=== PATIENT | female | born 1935 | race Caucasian/White ===

== ENCOUNTER 2017-07-02 14:37 | Inpatient (IN) ==
[2017-07-02] MEDS ORDERED: NON-FORMULARY MEDICATION 1 EACH EACH (Nitroglycerin [Nitrostat] 0.4 MG) SL PRN (18:58)
[2017-07-02] MEDS ORDERED: *HR* Dextrose 50 % in Water (Syg) 50 ML SYRINGE IVP PRN (19:02)
[2017-07-02] MEDS ORDERED: D5% in Water 1,000 ML IVC PRN (19:02)
[2017-07-02] MEDS ORDERED: Dextrose Gel 15 GM PO PRN ×2 (19:02)
[2017-07-02] MEDS ORDERED: Nitroglycerin 0.4 MG TAB.SUBL SL PRN (19:46)
[2017-07-02] MEDS: Apixaban 2.5 MG TABLET PO SCH (22:06)
[2017-07-02] MEDS: Beclomethasone 80mcg MDI IH SCH (22:06)
[2017-07-02] MEDS: *HR* OxyCODONE/APAP 5/325 TABLET PO PRN (22:06)
[2017-07-02] MEDS: Insulin LISPRO 300 UNITS/3 ML VIAL SQ SCH (22:15)
[2017-07-03] MEDS ORDERED: Haloperidol Lactate 5 MG/ML VIAL IM ONE (00:03)
[2017-07-03] MEDS: *HR* OxyCODONE/APAP 5/325 TABLET PO PRN ×2 (00:15→16:50)
[2017-07-03] MEDS: Levalbuterol Neb 1.25 MG/3 ML IH SCH ×2 (06:27→18:25)
[2017-07-03 07:05] LABS: INR 1.4; Prothrombin Time 15.2 Seconds (9.4-12.1)
[2017-07-03 07:08] LABS: Activated Partial Thrombo Time 29.9 Seconds (26.0-36.0)
[2017-07-03 07:12] LABS: Basophils % 0.3 %; Eosinophils # 0.1 K/mcL (0.0-0.6); Hematocrit 33.6 % (35.3-44.9); Immature Granulocytes % 0.4 % (0-4); Lymphocytes # 1.9 K/mcL (0.6-4.6); Lymphocytes % 21.1 %; Mean Corpuscular HGB Conc 32.7 g/dL (31.6-35.5); Mean Corpuscular Hemoglobin 30.7 pg (28.0-33.3); Mean Corpuscular Volume 93.9 fL (83.0-100.0); Mean Platelet Volume 10.2 fL (9.4-12.4); Monocytes % 10.7 %; Platelet Count 251 K/mcL (140-400); Red Blood Count 3.58 M/mcL (3.82-4.97); Segmented Neutrophils % 66.5 %
[2017-07-03 07:28] LABS: Calcium 9.5 mg/dL (8.6-10.3); Potassium 4.2 mEq/L (3.5-5.1)
[2017-07-03] MEDS ORDERED: NON-FORMULARY MEDICATION 1 EACH EACH (Quinapril Hcl [Accupril] 20 MG) PO SCH (09:00)
[2017-07-03] MEDS ORDERED: NON-FORMULARY MEDICATION 1 EACH EACH (Glipizide [Glipizide] 10 MG) PO SCH (09:00)
[2017-07-03] MEDS ORDERED: *HR* LORazepam 1 MG TABLET PO SCH (09:00)
[2017-07-03] MEDS: Aspirin Enteric Coated 81 MG Tablet PO SCH (09:34)
[2017-07-03] MEDS: *HR* GlipiZIDE XL (24 HR) 10 MG TABLET PO SCH (09:35)
[2017-07-03] MEDS: Lisinopril 20 MG TABLET PO SCH (09:35)
[2017-07-03] MEDS: Apixaban 2.5 MG TABLET PO SCH ×2 (09:35→22:36)
[2017-07-03] MEDS: Budesonide/Formoterol 160/4.5 MDI IH SCH (09:40)
--- NOTE | 2017-07-03 12:02 | Internal Med History&Physical ---
Date of Encounter: 07/03/17 Time of Encounter: 12:00 Assessment and Plan (1) Fall Current visit: No Status: Acute No acute issues. Patient continues to have unsteady gait and requires assist device of wheeled walker during ambulation. Patient to continue with physical therapy Qualifiers: Encounter type: subsequent encounter Qualified Code(s): W19.XXXD - Unspecified fall, subsequent encounter (2) Nocturnal confusion Current visit: Yes Status: Acute Patient with episode of nocturnal confusion last night, during which she became very agitated and attempted to leave the facility during late night. Patient required medication with Haldol, which showed be very effective. Patient with long history of chronic pain issues and has been taking Percocet at home. Patient was given an extra dose Percocet last evening prior to her confusion at night. We will evaluate patient's current medications. Patient currently shows no confusion or focal neurological deficits. Morning labs were reviewed which shows no acute issues. We will obtain a urinalysis for evaluation. We will continue was patient's current medications (3) Hypertension Current visit: No Status: Chronic Vital signs stable. We will continue with current medications. Qualifiers: Hypertension type: essential hypertension Qualified Code(s): I10 - Essential (primary) hypertension (4) Diabetes 1.5, managed as type 2 Current visit: No Status: Chronic Patients glucose has been slightly elevated between 150-200. Will evaluate patient's current medication regimen. Internal Medicine - H&P: HPI Admitted From: Home Plans for Post Hospital Care: Home History of present illness: Ms. Bryant is a 81 year old female with history of arthritis, asthma, atrial fibrillation, diabetes, high cholesterol, hypertension, rhinitis syncope and TIA. Patient apparently fell at home and sustained low back pain patient came into the emergency room at an [facility] due to persistent low back pain for about 2 days also some unsteady gait on ambulation. Per medical records, she experienced no chest pain no shortness of breath and emergency room images showed no fracture. She did have an evaluation troponin was 0.04 patient would then admitted. Pt was ruled out for a cardiac event and was determined to be deconditioned and would benefit from Physical therapy. Patient currently appears relaxed as appropriate with conversation. Patient did have nocturnal confusion last evening, during which time she became agitated and attempted to leave the facility during the late night. Patient time was reported as somewhat confused with complex decision-making, but appeared appropriate with orientation. Nurse reports no focal neurological deficits that time. Patient was medicated at that time with Haldol and responded well. This morning she states she remembers having issues last night and relates her confusion to pain medication. Patient does have a history of chronic pain disease and does take pain medication at home. Patient currently denies any discomforts or shortness. Patient was pleasant this morning and was able to follow directions and answer complex questions. Past Med Surg Social Fam HX - Past Medical History Medical history: arthritis, asthma, atrial fibrillation, diabetes, hyperlipidemia, hypertension, syncope, TIA Psychiatric history: anxiety - Social History Smoking Status: Never smoker Smokeless Tobacco Status: No Alcohol use: none Drug use: none Internal Medicine - H&P: Meds Albuterol Sulfate [Ventolin Hfa] 18 gm IH BID 05/26/15 [History] Apixaban [Eliquis] 2.5 mg PO BID 05/26/15 [History] Aspirin [Adult Low Dose Aspirin EC] 81 mg PO DAILY 05/26/15 [History] Atorvastatin [Lipitor] 40 mg PO HS 05/26/15 [History] Beclomethasone Diprop 80mcg [QVAR 80 mcg] 1 puff BID 05/26/15 [History] Fluticasone/Salmeterol [Advair 500-50 Diskus] 1 each IH DAILY 05/26/15 [History] Levalbuterol Neb [Xopenex Neb] 1.25 mg IH PRN PRN 05/26/15 [History] Metoprolol [Lopressor] 50 mg PO BID 05/26/15 [History] Nitroglycerin [Nitrostat] 0.4 mg SL PRN PRN 05/26/15 [History] Quinapril HCl [Accupril] 20 mg PO DAILY 05/26/15 [History] glipiZIDE [Glipizide] 10 mg PO DAILY 05/26/15 [History] LORazepam [Ativan] 1 mg PO DAILY 5 Days #5 tablet 07/02/17 [Rx] OxyCODONE/APAP 5/325 [Percocet 5/325 MG] 1 each PO Q8HR PRN 5 Days #10 tablet [Rx] 3 Allergy/AdvReac Type Severity Reaction Status Date / Time codeine AdvReac Hallucinati Verified 05/26/15 15:48 ng morphine AdvReac Hallucinati Verified 05/26/15 15:48 ng All Systems PM: A 10-system review of systems was performed and is negative for pertinent findings except as documented above in the HPI. - Constitutional Constitutional: as per HPI, no chills, no fever(s), no night sweats - EENT Eyes: no change in vision, no discharge, no pain, no photophobia Ears: no ear discharge, no ear pain, no tinnitus Nose, mouth and throat: no dysphagia, no nasal discharge, no neck pain, no sore throat - Cardiovascular Cardiovascular ROS IM: no chest pain, no diaphoresis, no dyspnea, no lightheadedness, no palpitations, no syncope - Respiratory Respiratory: no cough, no dyspnea, no wheezing, no excessive phlegm production - Gastrointestinal Gastrointestinal: no abdominal pain, no diarrhea, no hematemesis, no hematochezia, no melena, no nausea, no vomiting - Genitourinary Genitourinary: no change in urinary stream, no dysuria, no flank pain, no hematuria - Musculoskeletal Musculoskeletal ROS IM: no numbness, no tingling - Integumentary Integumentary IM: no rash, no unusual bruising - Neurological Neurological ROS: no confusion, no convulsions, no focal weakness, no numbness, no tingling, no tremor(s) - Hematologic/Lymphatic Hematologic/Lymphatic: no easy bruising - Constitutional Vitals: Temp Pulse Resp BP Pulse Ox 97.7 F 62 16 169/72 95 07/03/17 07:50 07/03/17 07:50 07/03/17 07:50 07/03/17 07:50 07/03/17 07:50 General appearance: Present: A&O X 3, pleasant - Head Head exam: Present: atraumatic, normocephalic - Eye Eye exam: Present: PERRL, conjuntiva pink, sclera anicteric Pupils: Present: PERRL - Neck Neck exam general surgery: Present: supple, trachea midline. Absent: lymphadenopathy - Respiratory Respiratory exam: Present: CTAB. Absent: accessory muscle use, rales, rhonchi, wheezes Additional comments: Lungs clear throughout upper reveals diminished to bases. Respiratory effort appears relaxed - Cardiovascular Cardiovascular exam: Present: RRR, +S1, +S2. Absent: diastolic murmur, gallop, rubs, systolic murmur - GI/Abdominal GI/Abdominal exam: Present: normal bowel sounds, soft, no peritoneal signs. Absent: distended, tenderness - Extremities Exam Extremities exam: Present: warm, radial pulses palpable and symmetrical. Absent : calf tenderness, cyanotic, pedal edema - Neurological Exam Neurological exam: Present: CN II-XII intact, oriented X3, no focal deficits. Absent: pronater drift, facial droop, speech deficit Additional comments: Patient currently is oriented x3 and appropriate with conversation. No focal neurological deficits noted on exam. Noted slight tremor of hands, which patient states is chronic - Skin Skin exam: Present: dry, intact Internal Med - H&P Results - Labs CBC & Chem 7: 07/03/17 06:52 07/03/17 06:52 Labs: Short CBC 07/03/17 Range/Units 06:52 WBC 9.0 (4.3-11.1) K/mcL Hgb 11.0 L (11.5-15.4) g/dL Hct 33.6 L (35.3-44.9) % Plt Count 251 D (140-400) K/mcL Neutrophils # 6.0 (1.6-8.9) K/mcL BMP 07/03/17 06:52 Sodium 132 L Potassium 4.2 Chloride 99 Carbon Dioxide 25 BUN 29 H Creatinine 1.16 Glucose 193 H Calcium 9.5
[2017-07-03] MEDS: Insulin LISPRO 300 UNITS/3 ML VIAL SQ SCH ×4 (13:22→22:33)
[2017-07-03] MEDS: Nystatin POWDER 30 GM BOTTLE TP SCH ×2 (13:24→22:40)
[2017-07-03] MEDS: Beclomethasone 80mcg MDI IH SCH ×2 (13:24→22:38)
[2017-07-03] MEDS: *HR* LORazepam 1 MG TABLET PO SCH (22:37)
[2017-07-04] MEDS: *HR* OxyCODONE/APAP 5/325 TABLET PO PRN ×2 (01:53→18:28)
[2017-07-04 02:05] LABS: Bilirubin,Urine Negative (Negative); Blood,Urine Negative (Negative); Clarity,Urine Clear (Clear); Color,Urine Yellow (Yellow); Glucose,Urine (UA) Normal (Normal); Ketones,Urine Negative (Negative); Leukocyte Esterase,Urine Negative (Negative); Nitrite,Urine Negative (Negative); Protein,Urine Negative (Neg-Trace); Urobilinogen,Urine Normal (Normal)
[2017-07-04] MEDS: Levalbuterol Neb 1.25 MG/3 ML IH SCH ×2 (06:22→19:38)
[2017-07-04] MEDS: Lisinopril 20 MG TABLET PO SCH (08:26)
[2017-07-04] MEDS: Aspirin Enteric Coated 81 MG Tablet PO SCH (08:26)
[2017-07-04] MEDS: Apixaban 2.5 MG TABLET PO SCH ×2 (08:27→22:27)
[2017-07-04] MEDS: *HR* GlipiZIDE XL (24 HR) 10 MG TABLET PO SCH (08:27)
[2017-07-04] MEDS: Nystatin POWDER 30 GM BOTTLE TP SCH ×2 (08:28→22:29)
[2017-07-04] MEDS: Insulin LISPRO 300 UNITS/3 ML VIAL SQ SCH ×4 (08:28→20:50)
[2017-07-04] MEDS: Budesonide/Formoterol 160/4.5 MDI IH SCH (08:28)
[2017-07-04] MEDS: Beclomethasone 80mcg MDI IH SCH ×2 (08:29→22:26)
--- NOTE | 2017-07-04 12:57 | Internal Med Progress Note ---
Date of Encounter: 07/04/17 Time of Encounter: 12:55 - Assessment and plan (1) Fall Current Visit: No Status: Acute Qualifiers: Encounter type: subsequent encounter Qualified Code(s): W19.XXXD - Unspecified fall, subsequent encounter (2) Nocturnal confusion Current Visit: Yes Status: Acute (3) Hypertension Current Visit: No Status: Chronic Qualifiers: Hypertension type: essential hypertension Qualified Code(s): I10 - Essential (primary) hypertension (4) Diabetes 1.5, managed as type 2 Current Visit: No Status: Chronic - Subjective Interval history: Pt appears relaxed and denies any current issues or discomforts. Patient states that her pain has currently been controlled with current medications and denies any adverse reactions. Patient is appropriate with conversation and oriented. - Constitutional Vitals: Temp Pulse Resp BP Pulse Ox 97.6 F 61 16 109/53 99 07/04/17 07:31 07/04/17 07:31 07/04/17 07:31 07/04/17 07:31 07/04/17 07:31 General appearance: Present: A&O X 3, pleasant - Head Head exam: Present: atraumatic, normocephalic - Eye Eye exam: Present: PERRL, conjuntiva pink, sclera anicteric Pupils: Present: PERRL - Neck Neck exam general surgery: Present: supple, trachea midline. Absent: lymphadenopathy - Respiratory Respiratory exam: Present: CTAB. Absent: accessory muscle use, rales, rhonchi, wheezes Additional comments: Diminished breath sounds to basilar adrian. Respiratory effort appears relaxed - Cardiovascular Cardiovascular exam: Present: RRR, +S1, +S2. Absent: diastolic murmur, gallop, rubs, systolic murmur - GI/Abdominal GI/Abdominal exam: Present: normal bowel sounds, soft, no peritoneal signs. Absent: distended, tenderness - Extremities Exam Extremities exam: Present: warm, radial pulses palpable and symmetrical. Absent : calf tenderness, cyanotic, pedal edema - Neurological Exam Neurological exam: Present: CN II-XII intact, oriented X3, reflexes normal, no focal deficits, strengths equal and symetr throughout. Absent: pronater drift, facial droop, speech deficit - Skin Skin exam: Present: dry, intact Internal Medicine: Result - Labs CBC & Chem 7: 07/03/17 06:52 07/03/17 06:52 Labs: Urine 07/04/17 Range/Units 01:55 Urine Color Yellow (Yellow) Urine Clarity Clear (Clear) Urine pH 7.0 (5.0-8.0) pH Units Ur Specific [place] 1.010 (1.010-1.025) Urine Protein Negative (Neg-Trace) mg/dL Urine Glucose (UA) Normal (Normal) mg/dL - ABG Interpretation ABG results: PT/INR, D-dimer PT 15.2 Seconds (9.4-12.1) H 07/03/17 06:52 Consult Discharge Plan - Plan Referrals: Danette Verde MD [Primary Care Provider] -
[2017-07-04] MEDS: *HR* LORazepam 1 MG TABLET PO SCH (22:27)
[2017-07-05] MEDS: Levalbuterol Neb 1.25 MG/3 ML IH SCH (05:08)
--- NOTE | 2017-07-05 08:04 | Internal Med Progress Note ---
Date of Encounter: 07/05/17 Time of Encounter: 08:04 - Assessment and plan (1) Status post hip hemiarthroplasty Current Visit: Yes Status: Acute Assessment and plan: Stable, postoperatively, participating in therapies as planned. (2) DM type 2 (diabetes mellitus, type 2) Current Visit: No Status: Chronic Assessment and plan: Clinically stable and will continue current medications and sliding scale. Qualifiers: Diabetes mellitus inter[employer] customer [employer] insulin use: without care home use Diabetes mellitus complication status: with neurologic complications Diabetes mellitus complication detail: with polyneuropathy Qualified Code(s): E11.42 - Type 2 diabetes mellitus with diabetic polyneuropathy (3) CKD (chronic kidney disease) Current Visit: No Status: Chronic Assessment and plan: Stable, will continue to monitor. Qualifiers: Chronic kidney disease stage: stage 3 (moderate) Qualified Code(s): N18.3 - Chronic kidney disease, stage 3 (moderate) (4) Constipation Current Visit: Yes Status: Acute Assessment and plan: We will begin MiraLAX and follow. Qualifiers: Constipation type: slow transit constipation Qualified Code(s): K59.01 - Slow transit constipation - Time Spent With Patient 25 - 35 minutes - Subjective Interval history: Patient is tired out after therapy. Otherwise, has been feeling better and continues to progress with therapy, generally. She notes extensive bruising at her right hip. I discussed this and its natural progression, with her. She has not had a bowel movement and feels no need. Denies abdominal discomfort , etc. Patient has no complaint of chest discomfort, dyspnea, orthopnea, palpitations, nausea or vomiting, constipation or diarrhea, other changes in bowel habits, difficulty with urination, rash or itching, or other new complaints. Review of systems is otherwise unremarkable. - Constitutional Vitals: Temp Pulse Resp BP Pulse Ox 97.7 F 61 17 129/62 95 07/04/17 19:00 07/04/17 19:00 07/04/17 19:00 07/04/17 19:00 07/04/17 19:00 General appearance: Present: A&O X 3, pleasant Exam: Examinatioin: (Except as mentioned above): General: In no apparent distress. Alert and oriented 3. Nondiaphoretic. Head: Atraumatic and normocephalic. Respiratory: No use of accessory muscles. Lungs are clear throughout. Normal airflow. Cardiovascular: Regular rate and rhythm without murmur appreciated. Abdomen: Bowel sounds are normal. No hepatosplenomegaly mass or tenderness appreciated. Obese and therefore difficult to palpate deeply. Extremities: No cyanosis clubbing or edema. Skin: Warm and non-diaphoretic with no new lesions noted. Multiple ecchymoses at low sacral region on the right as well as right hip. Internal Medicine: Result - Labs CBC & Chem 7: 07/03/17 06:52 07/03/17 06:52 - ABG Interpretation ABG results: PT/INR, D-dimer PT 15.2 Seconds (9.4-12.1) H 07/03/17 06:52 Consult Discharge Plan - Plan Referrals: Danette Verde MD [Primary Care Provider] -
[2017-07-05] MEDS: Insulin LISPRO 300 UNITS/3 ML VIAL SQ SCH ×4 (08:10→21:28)
[2017-07-05] MEDS: *HR* OxyCODONE/APAP 5/325 TABLET PO PRN ×2 (08:15→21:26)
[2017-07-05] MEDS: Aspirin Enteric Coated 81 MG Tablet PO SCH (08:15)
[2017-07-05] MEDS: Lisinopril 20 MG TABLET PO SCH (08:15)
[2017-07-05] MEDS: *HR* GlipiZIDE XL (24 HR) 10 MG TABLET PO SCH (08:16)
[2017-07-05] MEDS: Apixaban 2.5 MG TABLET PO SCH ×2 (08:16→21:25)
[2017-07-05] MEDS: Budesonide/Formoterol 160/4.5 MDI IH SCH (08:17)
[2017-07-05] MEDS: Nystatin POWDER 30 GM BOTTLE TP SCH ×2 (08:17→21:29)
[2017-07-05] MEDS: Beclomethasone 80mcg MDI IH SCH (08:18)
[2017-07-05] MEDS ORDERED: Beclomethasone 80mcg MDI IH PRN (08:25)
[2017-07-05] MEDS ORDERED: Budesonide/Formoterol 160/4.5 MDI IH PRN (08:26)
[2017-07-05] MEDS ORDERED: Levalbuterol Neb 1.25 MG/3 ML IH PRN (15:57)
[2017-07-05] MEDS: *HR* LORazepam 1 MG TABLET PO SCH (21:25)
[2017-07-06] MEDS: Insulin LISPRO 300 UNITS/3 ML VIAL SQ SCH ×3 (07:35→16:09)
[2017-07-06] MEDS: Aspirin Enteric Coated 81 MG Tablet PO SCH (08:18)
[2017-07-06] MEDS: Apixaban 2.5 MG TABLET PO SCH ×2 (08:18→22:50)
[2017-07-06] MEDS: *HR* GlipiZIDE XL (24 HR) 10 MG TABLET PO SCH (08:18)
[2017-07-06] MEDS: Lisinopril 20 MG TABLET PO SCH (08:18)
[2017-07-06] MEDS: Nystatin POWDER 30 GM BOTTLE TP SCH ×2 (08:22→22:47)
[2017-07-06] MEDS: *HR* OxyCODONE/APAP 5/325 TABLET PO PRN ×2 (09:40→22:04)
--- NOTE | 2017-07-06 17:51 | Internal Med Progress Note ---
Date of Encounter: 07/06/17 Time of Encounter: 17:50 - Assessment and plan (1) Status post hip hemiarthroplasty Current Visit: Yes Status: Acute Assessment and plan: Stable, postoperatively, participating in therapies as planned. See notes about her questions about discharge planning, in history of present illness. (2) DM type 2 (diabetes mellitus, type 2) Current Visit: No Status: Chronic Assessment and plan: Clinically stable and will continue current medications and sliding scale. Qualifiers: Diabetes mellitus alf insulin use: without termite helper use Diabetes mellitus complication status: with neurologic complications Diabetes mellitus complication detail: with polyneuropathy Qualified Code(s): E11.42 - Type 2 diabetes mellitus with diabetic polyneuropathy (3) CKD (chronic kidney disease) Current Visit: No Status: Chronic Assessment and plan: Stable, will continue to monitor. Qualifiers: Chronic kidney disease stage: stage 3 (moderate) Qualified Code(s): N18.3 - Chronic kidney disease, stage 3 (moderate) (4) Constipation Current Visit: Yes Status: Acute Assessment and plan: Clinically stable with no signs of constipation, currently. Qualifiers: Constipation type: slow transit constipation Qualified Code(s): K59.01 - Slow transit constipation - Time Spent With Patient 25 - 35 minutes - Subjective Interval history: Patient is feeling fatigued but is moving around better. She has had a bowel movement daily. She has no acute complaints. She questions discharge planning. I informed her that we would talk about her team meeting tomorrow and she is interested in the results and whether she should consider going home or to an extended care facility. Patient has no complaint of chest discomfort, dyspnea, orthopnea, palpitations, nausea or vomiting, constipation or diarrhea, other changes in bowel habits, difficulty with urination, rash or itching, or other new complaints. Review of systems is otherwise unremarkable. - Constitutional Vitals: Temp Pulse Resp BP Pulse Ox 97.7 F 60 16 124/60 100 07/06/17 08:00 07/06/17 08:00 07/06/17 08:00 07/06/17 08:00 07/06/17 08:00 General appearance: Present: A&O X 3, pleasant Exam: Examinatioin: (Except as mentioned above): General: In no apparent distress. Alert and oriented 3. Nondiaphoretic. Head : Atraumatic and normocephalic. Respiratory: No use of accessory muscles. Lungs are clear throughout. Normal airflow. Cardiovascular: Regular rate and rhythm with a grade 2/6 systolic murmur heard at the left base and minimally at the left ventricular outflow tract. Abdomen: Bowel sounds are normal. No hepatosplenomegaly mass or tenderness appreciated. Obese and therefore difficult to palpate deeply. Examined upright in chair. Extremities: No cyanosis clubbing but has about 1+ ankle edema, bilaterally, as before without erythema or signs of infection. Skin: Warm and non-diaphoretic with no new lesions noted. Internal Medicine: Result - Labs CBC & Chem 7: 07/03/17 06:52 07/03/17 06:52 - ABG Interpretation ABG results: PT/INR, D-dimer PT 15.2 Seconds (9.4-12.1) H 07/03/17 06:52 Consult Discharge Plan - Plan Referrals: Danette Verde MD [Primary Care Provider] -
[2017-07-06] MEDS: *HR* LORazepam 1 MG TABLET PO SCH (21:59)
[2017-07-06] MEDS: Apixaban 5 MG TABLET PO SCH ×2 (23:34→23:36)
[2017-07-07 07:18] LABS: Basophils % 0.3 %; Eosinophils # 0.2 K/mcL (0.0-0.6); Eosinophils % 2.6 %; Hematocrit 34.1 % (35.3-44.9); Hemoglobin 10.8 g/dL (11.5-15.4); Immature Granulocytes % 0.4 % (0-4); Lymphocytes # 1.6 K/mcL (0.6-4.6); Lymphocytes % 22.5 %; Mean Corpuscular HGB Conc 31.7 g/dL (31.6-35.5); Mean Corpuscular Hemoglobin 30.8 pg (28.0-33.3); Mean Corpuscular Volume 97.2 fL (83.0-100.0); Mean Platelet Volume 10.1 fL (9.4-12.4); Monocytes # 0.7 K/mcL (0.0-1.3); Monocytes % 9.7 %; Neutrophils # 4.5 K/mcL (1.6-8.9); Platelet Count 256 K/mcL (140-400); Red Blood Count 3.51 M/mcL (3.82-4.97); Red Cell Distribution Width 14.7 % (11.5-14.5); Segmented Neutrophils % 64.5 %
[2017-07-07 07:33] LABS: Albumin 3.6 g/dL (3.5-5.7); Albumin/Globulin Ratio 1.3 (1.1-2.2); Calcium 9.4 mg/dL (8.6-10.3); Globulin 2.8 g/dL (2.4-3.5); Potassium 4.4 mEq/L (3.5-5.1); Total Protein 6.4 g/dL (6.4-8.9)
[2017-07-07 08:05] LABS: Bilirubin,Direct 0.5 mg/dL (0.0-0.2)
[2017-07-07] MEDS: Aspirin Enteric Coated 81 MG Tablet PO SCH (08:20)
[2017-07-07] MEDS: Lisinopril 20 MG TABLET PO SCH (08:20)
[2017-07-07] MEDS: Apixaban 5 MG TABLET PO SCH ×2 (08:20→22:10)
[2017-07-07] MEDS: *HR* OxyCODONE/APAP 5/325 TABLET PO PRN ×2 (08:20→22:11)
[2017-07-07] MEDS: Nystatin POWDER 30 GM BOTTLE TP SCH ×2 (08:21→22:10)
[2017-07-07] MEDS: *HR* GlipiZIDE XL (24 HR) 10 MG TABLET PO SCH (08:21)
[2017-07-07] MEDS ORDERED: Apixaban 5 MG TABLET PO SCH (09:00)
--- NOTE | 2017-07-07 11:35 | Internal Med Progress Note ---
Date of Encounter: 07/07/17 Time of Encounter: 11:32 - Assessment and plan (1) Fall Current Visit: No Status: Acute Assessment and plan: No acute issues. Patient is with unsteady gait requiring assistance device. Patient continues to progress well with physical therapy. Qualifiers: Encounter type: subsequent encounter Qualified Code(s): W19.XXXD - Unspecified fall, subsequent encounter (2) Nocturnal confusion Current Visit: Yes Status: Acute Assessment and plan: No further reports nocturnal confusion received from nursing. Problem currently appears to be resolved. (3) Hypertension Current Visit: No Status: Chronic Assessment and plan: Vital signs are stable. We will continue with current medications. Qualifiers: Hypertension type: essential hypertension Qualified Code(s): I10 - Essential (primary) hypertension (4) Diabetes 1.5, managed as type 2 Current Visit: No Status: Chronic Assessment and plan: No acute issues. Glucose has been controlled with current regimen. Will continue to monitor per FS - Subjective Interval history: Pt appears relaxed and denies any current issues or discomforts. Patient states that her pain has currently been controlled with current medications and denies any adverse reactions. Patient is appropriate with conversation and oriented. No reported behavior issues from Nursing reported. - Constitutional Vitals: Temp Pulse Resp BP Pulse Ox 97.9 F 62 19 155/64 97 07/07/17 05:55 07/07/17 05:55 07/07/17 05:55 07/07/17 05:55 07/07/17 05:55 General appearance: Present: A&O X 3, pleasant - Head Head exam: Present: atraumatic, normocephalic - Eye Eye exam: Present: PERRL, conjuntiva pink, sclera anicteric Pupils: Present: PERRL - Neck Neck exam general surgery: Present: supple, trachea midline. Absent: lymphadenopathy - Respiratory Respiratory exam: Present: CTAB. Absent: accessory muscle use, rales, rhonchi, wheezes - Cardiovascular Cardiovascular exam: Present: RRR, +S1, +S2. Absent: diastolic murmur, gallop, rubs, systolic murmur - GI/Abdominal GI/Abdominal exam: Present: normal bowel sounds, soft, no peritoneal signs. Absent: distended, tenderness - Extremities Exam Extremities exam: Present: warm, radial pulses palpable and symmetrical. Absent : calf tenderness, cyanotic, pedal edema - Neurological Exam Neurological exam: Present: CN II-XII intact, oriented X3, no focal deficits. Absent: pronater drift, facial droop, speech deficit - Skin Skin exam: Present: dry, intact Internal Medicine: Result - Labs CBC & Chem 7: 07/07/17 06:51 07/07/17 06:51 Labs: Short CBC 07/07/17 Range/Units 06:51 WBC 6.9 (4.3-11.1) K/mcL Hgb 10.8 L (11.5-15.4) g/dL Hct 34.1 L (35.3-44.9) % Plt Count 256 (140-400) K/mcL Neutrophils # 4.5 (1.6-8.9) K/mcL BMP 07/07/17 06:51 Sodium 137 Potassium 4.4 Chloride 103 Carbon Dioxide 28 BUN 33 H Creatinine 1.26 H Glucose 100 Calcium 9.4 Liver Function 07/07/17 Range/Units 06:51 Total Bilirubin 3.0 H (0.3-1.0) mg/dL Direct Bilirubin 0.5 H (0.0-0.2) mg/dL AST 15 (13-39) Units/L ALT 10 (7-52) Units/L Alkaline Phosphatase 70 (34-104) Units/L Albumin 3.6 (3.5-5.7) g/dL - ABG Interpretation ABG results: PT/INR, D-dimer PT 15.2 Seconds (9.4-12.1) H 07/03/17 06:52 Consult Discharge Plan - Plan Referrals: Danette Verde MD [Primary Care Provider] -
[2017-07-07] MEDS: *HR* LORazepam 1 MG TABLET PO SCH (22:10)
[2017-07-08] MEDS: *HR* GlipiZIDE XL (24 HR) 10 MG TABLET PO SCH (07:37)
[2017-07-08] MEDS: Apixaban 5 MG TABLET PO SCH ×2 (07:37→22:16)
[2017-07-08] MEDS: Lisinopril 20 MG TABLET PO SCH (07:38)
[2017-07-08] MEDS: *HR* OxyCODONE/APAP 5/325 TABLET PO PRN ×2 (07:39→18:21)
[2017-07-08] MEDS: Aspirin Enteric Coated 81 MG Tablet PO SCH (07:39)
[2017-07-08] MEDS: Nystatin POWDER 30 GM BOTTLE TP SCH ×2 (09:34→22:18)
--- NOTE | 2017-07-08 11:03 | Internal Med Progress Note ---
Date of Encounter: 07/08/17 Time of Encounter: 11:00 - Assessment and plan (1) Hypertension Current Visit: Yes Status: Chronic Assessment and plan: Controlled with current medications. Continue to monitor blood pressure Qualifiers: Hypertension type: essential hypertension Qualified Code(s): I10 - Essential (primary) hypertension (2) Diabetes 1.5, managed as type 2 Current Visit: Yes Status: Chronic Assessment and plan: Controlled with current medication. Monitor fingerstick blood sugar will adjust medicines as necessary. (3) Unsteady gait Current Visit: Yes Status: Acute Assessment and plan: Ambulated hallway with Walker with therapy. Progressing well with therapy. Will continue to follow - Time Spent With Patient less than 15 minutes - Subjective Interval history: Patient participating well with therapy. States feeling fatigued today. Not sleeping well at night. States worried about going home, ensure if she will have help. Denies any complaints or pain at this time. - Constitutional Vitals: Temp Pulse Resp BP Pulse Ox 97.6 F 70 16 125/64 98 07/08/17 09:10 07/08/17 09:10 07/08/17 09:10 07/08/17 09:10 07/08/17 09:10 General appearance: Present: A&O X 3, pleasant, obese, answers questions appropriately - Head Head exam: Present: atraumatic, normocephalic - Eye Eye exam: Present: PERRL, conjuntiva pink, sclera anicteric Pupils: Present: PERRL - Neck Neck exam general surgery: Present: supple, trachea midline. Absent: lymphadenopathy - Respiratory Respiratory exam: Present: CTAB. Absent: accessory muscle use, rales, rhonchi, wheezes - Cardiovascular Cardiovascular exam: Present: RRR, +S1, +S2. Absent: diastolic murmur, gallop, rubs, systolic murmur - GI/Abdominal GI/Abdominal exam: Present: normal bowel sounds, soft, no peritoneal signs. Absent: distended, tenderness - Extremities Exam Extremities exam: Present: warm, radial pulses palpable and symmetrical. Absent : calf tenderness, cyanotic, pedal edema - Neurological Exam Neurological exam: Present: CN II-XII intact, oriented X3, no focal deficits. Absent: pronater drift, facial droop, speech deficit - Skin Skin exam: Present: dry, intact Internal Medicine: Result - Labs CBC & Chem 7: 03/12/18 06:51 07/07/17 06:51 - ABG Interpretation ABG results: PT/INR, D-dimer PT 15.2 Seconds (9.4-12.1) H 07/03/17 06:52 Consult Discharge Plan - Plan Referrals: Danette Verde MD [Primary Care Provider] -
[2017-07-08] MEDS: *HR* LORazepam 1 MG TABLET PO SCH (22:17)
[2017-07-09] MEDS: *HR* OxyCODONE/APAP 5/325 TABLET PO PRN ×3 (05:52→22:40)
[2017-07-09] MEDS: Apixaban 5 MG TABLET PO SCH ×2 (09:13→20:34)
[2017-07-09] MEDS: Aspirin Enteric Coated 81 MG Tablet PO SCH (09:13)
[2017-07-09] MEDS: *HR* GlipiZIDE XL (24 HR) 10 MG TABLET PO SCH (09:13)
[2017-07-09] MEDS: Lisinopril 20 MG TABLET PO SCH (09:13)
[2017-07-09] MEDS: Nystatin POWDER 30 GM BOTTLE TP SCH ×2 (09:14→20:37)
--- NOTE | 2017-07-09 15:28 | Internal Med Progress Note ---
Date of Encounter: 07/09/17 Time of Encounter: 15:19 - Assessment and plan (1) Hypertension Current Visit: Yes Status: Chronic Assessment and plan: Controlled with current medications. Continue to monitor blood pressure Qualifiers: Hypertension type: essential hypertension Qualified Code(s): I10 - Essential (primary) hypertension (2) Diabetes 1.5, managed as type 2 Current Visit: Yes Status: Chronic Assessment and plan: Controlled with current medication. Monitor fingerstick blood sugar will adjust medicines as necessary. Continue with SSI coverage. (3) Unsteady gait Current Visit: Yes Status: Acute Assessment and plan: Continue with unsteady gait requiring walker during ambulation. Pt progressing well with PT/OT. - Subjective Interval history: Pt appears relaxed and denies any current issues or discomforts. Patient states that her pain has currently been controlled with current medications. - Constitutional Vitals: Temp Pulse Resp BP Pulse Ox 98.2 F 59 16 105/60 97 07/09/17 07:00 07/09/17 07:00 07/09/17 07:00 07/09/17 07:00 07/09/17 07:00 General appearance: Present: A&O X 3, pleasant, obese, answers questions appropriately - Head Head exam: Present: atraumatic, normocephalic - Eye Eye exam: Present: PERRL, conjuntiva pink, sclera anicteric Pupils: Present: PERRL - Neck Neck exam general surgery: Present: supple, trachea midline. Absent: lymphadenopathy - Respiratory Respiratory exam: Present: CTAB. Absent: accessory muscle use, rales, rhonchi, wheezes - Cardiovascular Cardiovascular exam: Present: RRR, +S1, +S2. Absent: diastolic murmur, gallop, rubs, systolic murmur - GI/Abdominal GI/Abdominal exam: Present: normal bowel sounds, soft, no peritoneal signs. Absent: distended, tenderness - Extremities Exam Extremities exam: Present: warm, radial pulses palpable and symmetrical. Absent : calf tenderness, cyanotic, pedal edema - Neurological Exam Neurological exam: Present: CN II-XII intact, oriented X3, no focal deficits. Absent: pronater drift, facial droop, speech deficit - Skin Skin exam: Present: dry, intact Internal Medicine: Result - Labs CBC & Chem 7: 07/07/17 06:51 07/07/17 06:51 - ABG Interpretation ABG results: PT/INR, D-dimer PT 15.2 Seconds (9.4-12.1) H 07/03/17 06:52 Consult Discharge Plan - Plan Referrals: Danette Verde MD [Primary Care Provider] - 07/15/17 1:45 pm (follow up appointment)
[2017-07-09] MEDS: *HR* LORazepam 1 MG TABLET PO SCH (20:34)
[2017-07-10 07:36] VITALS: BP 188/56
[2017-07-10] MEDS: Apixaban 5 MG TABLET PO SCH (09:52)
[2017-07-10] MEDS: *HR* GlipiZIDE XL (24 HR) 10 MG TABLET PO SCH (09:52)
[2017-07-10] MEDS: Lisinopril 20 MG TABLET PO SCH (09:52)
[2017-07-10] MEDS: Aspirin Enteric Coated 81 MG Tablet PO SCH (09:53)
[2017-07-10] MEDS: Nystatin POWDER 30 GM BOTTLE TP SCH (09:54)
--- NOTE | 2017-07-10 10:26 | Physician Discharge Referral ---
Home Health/Hosp Referral Info Transfer to: Home Health Provider in Charge Post Discharge: PCP - Diagnosis (1) Status post hip hemiarthroplasty Status: Acute (2) DM type 2 (diabetes mellitus, type 2) Priority: Primary Status: Chronic (3) CKD (chronic kidney disease) Priority: Secondary Status: Chronic (4) Constipation Priority: Secondary Status: Acute - Respiratory Orders Smoking Cessation: Smoking cessation has been advised. For more information, call the [place] Tobacco Quit Line at 7-459-OEQZ-NOW. - Diet/Nutrition Diet/Nutrition Orders: Regular - Activity Activity Orders: Walker - Services Needed Following services are medically necessary services: Nursing, Home Health Aide, Physical Therapy, Occupational Therapy - Transfer Medications Home Medications: Albuterol Sulfate [Ventolin Hfa] 18 gm IH BID 05/26/15 [History] Apixaban [Eliquis] 2.5 mg PO BID 05/26/15 [History] Aspirin [Adult Low Dose Aspirin EC] 81 mg PO DAILY 05/26/15 [History] Atorvastatin [Lipitor] 40 mg PO HS 05/26/15 [History] Beclomethasone Diprop 80mcg [QVAR 80 mcg] 1 puff BID 05/26/15 [History] Fluticasone/Salmeterol [Advair 500-50 Diskus] 1 each IH DAILY 05/26/15 [History] Levalbuterol Neb [Xopenex Neb] 1.25 mg IH PRN PRN 05/26/15 [History] Metoprolol [Lopressor] 50 mg PO BID 05/26/15 [History] Nitroglycerin [Nitrostat] 0.4 mg SL PRN PRN 05/26/15 [History] Quinapril HCl [Accupril] 20 mg PO DAILY 05/26/15 [History] glipiZIDE [Glipizide] 10 mg PO DAILY 05/26/15 [History] LORazepam [Ativan] 1 mg PO DAILY 5 Days #5 tablet 07/02/17 [Rx] OxyCODONE/APAP 5/325 [Percocet 5/325 MG] 1 each PO Q8HR PRN 5 Days #10 tablet [Rx] Allergies/Adverse Reactions: 3 Allergy/AdvReac Type Severity Reaction Status Date / Time codeine AdvReac Hallucinati Verified 05/26/15 15:48 ng morphine AdvReac Hallucinati Verified 05/26/15 15:48 ng Certification: Further, I certify that my clinical findings support that this patient is homebound (i.e. absences from home require considerable and taxing effort and are for medical reasons or church services or infrequently or short duration when for other reasons) because: Homebound Reason: Patient requires assistance of a person or device to safely leave home, Absences from home are contraindicated except to recieve medical care, Post-surgery restriction and or conditions limit ability to leave home, Leaving home requires considerable and taxing effort due to condition Attestation: My signature below is to certify that this patient is under my care and that I, or nurse practitioner, or a physician's leasing assistant working with me, has a face-to -face encounter with this patient.
--- NOTE | 2017-07-10 11:23 | Discharge Summary ---
- NOTES TO OUTPATIENT PROVIDER Notes to Outpatient Provider: Patient has improved in terms of deconditioning but still needs multiple cues about safety precautions.Mild conjugated hyperbilirubinemia with normal hepatic enzymes will need to be repeated in about a week. Orders not resulted at time of discharge: Pending orders 07/14/17 04:00 Activated Partial Thrombo Time [COAG] MO Basic Metabolic Panel MO Complete Blood Count [HEME] MO 07/21/17 04:00 Activated Partial Thrombo Time [COAG] MO Basic Metabolic Panel MO Complete Blood Count [HEME] MO 07/28/17 04:00 Activated Partial Thrombo Time [COAG] MO Basic Metabolic Panel MO Complete Blood Count [HEME] MO Date of Encounter: 07/10/17 Time of Encounter: 11:21 - Discharge Diagnosis (1) DM type 2 (diabetes mellitus, type 2) Priority: Secondary Status: Chronic Qualifiers: Diabetes mellitus adjunct faculty for medical terminology insulin use: without adjunct faculty for medical terminology use Diabetes mellitus complication status: with neurologic complications Diabetes mellitus complication detail: with polyneuropathy Qualified Code(s): E11.42 - Type 2 diabetes mellitus with diabetic polyneuropathy (2) CKD (chronic kidney disease) Priority: Secondary Status: Chronic Qualifiers: Chronic kidney disease stage: stage 3 (moderate) Qualified Code(s): N18.3 - Chronic kidney disease, stage 3 (moderate) (3) Constipation Priority: Secondary Status: Acute Qualifiers: Constipation type: slow transit constipation Qualified Code(s): K59.01 - Slow transit constipation (4) Hip pain, right Priority: Secondary Status: Acute (5) Fall Priority: Primary Status: Acute Qualifiers: Encounter type: subsequent encounter Qualified Code(s): W19.XXXD - Unspecified fall, subsequent encounter (6) Physical deconditioning Priority: Secondary (Has improved steadily with therapy program) Status: Acute Hospital course: Ms. Bryant is a 81 year old female who fell at home and was noted to have marked hip pain, ecchymosis, without fracture. She underwent physical, occupational therapy and improved in terms of her deconditioning. She still had an unsteady gait and it was felt she needed long-term use of a walker and constant monitoring by healthcare staff or family, at home. She had constipation that was rather significant her on admission and early in her hospital course but this improved. She has chronic kidney disease which is stable. She has mild conjugated hyperbilirubinemia but this is asymptomatic and should be followed and evaluated by her PCP, if persists. - Time Spent with Patient Total time spent providing and/or coordinating discharge services: - Discharge Medications Home Medications: Albuterol Sulfate [Ventolin Hfa] 18 gm IH BID 05/26/15 [History] Apixaban [Eliquis] 2.5 mg PO BID 05/26/15 [History] Aspirin [Adult Low Dose Aspirin EC] 81 mg PO DAILY 05/26/15 [History] Atorvastatin [Lipitor] 40 mg PO HS 05/26/15 [History] Beclomethasone Diprop 80mcg [QVAR 80 mcg] 1 puff BID 05/26/15 [History] Fluticasone/Salmeterol [Advair 500-50 Diskus] 1 each IH DAILY 05/26/15 [History] Levalbuterol Neb [Xopenex Neb] 1.25 mg IH PRN PRN 05/26/15 [History] Metoprolol [Lopressor] 50 mg PO BID 05/26/15 [History] Nitroglycerin [Nitrostat] 0.4 mg SL PRN PRN 05/26/15 [History] Quinapril HCl [Accupril] 20 mg PO DAILY 05/26/15 [History] glipiZIDE [Glipizide] 10 mg PO DAILY 05/26/15 [History] LORazepam [Ativan] 1 mg PO DAILY 5 Days #5 tablet 07/02/17 [Rx] OxyCODONE/APAP 5/325 [Percocet 5/325 MG] 1 each PO Q8HR PRN 5 Days #10 tablet [Rx] Allergies/Adverse Reactions: 3 Allergy/AdvReac Type Severity Reaction Status Date / Time codeine AdvReac Hallucinati Verified 05/26/15 15:48 ng morphine AdvReac Hallucinati Verified 05/26/15 15:48 ng Date of admission: 07/02/17 18:23 Primary care physician: aDnette Verde Consults: 07/02/17 18:59 Consult to Occupational Therapy [CONS] Routine Comment: Evaluate, develop and implement POC Reason for Consult: s/p falls Consult to Physical Therapy [CONS] Routine Comment: Evaluate, develop and implement POC Reason for Consult: s/p falls Discharging clinician: Jose David King Anticipated date of discharge: 07/10/17 - Constitutional Vitals: Temp Pulse Resp BP Pulse Ox 97.6 F 60 16 188/56 97 07/10/17 07:00 07/10/17 07:00 07/10/17 07:00 07/10/17 07:00 07/10/17 07:00 General appearance: Present: A&O X 3, pleasant, obese, answers questions appropriately Exam: Examinatioin: (Except as mentioned above): General: In no apparent distress. Alert and oriented 3. Nondiaphoretic. Head: Atraumatic and normocephalic. Respiratory: No use of accessory muscles. Lungs are clear throughout. Normal airflow. Cardiovascular: Regular rate and rhythm without murmur appreciated. Abdomen: Bowel sounds are normal. No hepatosplenomegaly mass or tenderness appreciated. Morbidly obese and therefore difficult to palpate deeply. Examined upright in wheelchair in therapy which limits exam, as well. Extremities: No cyanosis clubbing or edema. Skin: Warm and non-diaphoretic with no new lesions noted. - Patient Status Disposition: Home Health Service Condition: Good Functional capacity at discharge: uses cane/walker Overall status at discharge: patient is progressing back to baseline - Discharge Instructions Instructions: Chronic Hypertension (DC) Follow Up With: Danette Verde MD [Primary Care Provider] - 07/15/17 1:45 pm (follow up appointment) - Diet and Activity Activity: ambulate only with your walker, as per physical therapy Diet: diabetic diet
== END 2017-07-10 11:25 | disposition home health service (06) | DRG 946 ==
LOC: INPGRE 18:23